=== PATIENT | female | born 2000 | race Caucasian/White ===

== ENCOUNTER → 2022-08-10 | Outpatient (CLI) | payer SELFPAY | LOC: LAB SHORT 15:10 → LAB 15:10 | DX: Z11.3 Encounter for screening for infections with a predominantly sexual mode of transmission (principal) | CPT/HCPCS: 86592 ==

== ENCOUNTER 2025-02-20 11:45 | Emergency (ER) | payer OTHER ==
[~2025-02-20] VITALS: Ht 165.1 cm; Wt 77.1 kg
[2025-02-20 12:10] VITALS: BP 134/90
== END 2025-02-20 13:36 | disposition home or self-care (01) ==
LOC: ER 11:45
DX: R25.2 Cramp and spasm (principal); Z30.431 Encounter for routine checking of intrauterine contraceptive device
CPT/HCPCS: 76830; 76857; 99283-25